=== PATIENT | male | born 1960 | race Two or more races ===

== ENCOUNTER 2020-07-03 06:23 | Inpatient (IN) | payer MEDICAID ==
[~2020-07-03] VITALS: Ht 175.3 cm; Wt 75.5 kg
[2020-07-03] MEDS ORDERED: fentaNYL CITRATE 100 MCG/2 ML VL ONE (07:13)
[2020-07-03] MEDS ORDERED: ANGIOMAX 250 MG VIAL IV ONE (07:13)
[2020-07-03] MEDS ORDERED: MIDAZOLAM HCL 1MG/1ML-2 ML VIAL ONE (07:14)
[2020-07-03] MEDS ORDERED: HEPARIN SODIUM (PORCINE) 5000 UNITS/ML 1ML VIAL ONE (07:14)
[2020-07-03] MEDS ORDERED: VERAPAMIL 2.5MG/ML INJ 2ML VIAL IV ONE (07:14)
[2020-07-03] MEDS ORDERED: SODIUM CHL 0.9% 50 ML ONE (07:14)
[2020-07-03] MEDS ORDERED: LIDOCAINE 2%HCL (LOCAL ANESTH.) INJ 20ML MDV ONE (07:20)
[2020-07-03] MEDS ORDERED: IODIXANOL 320MG/ML 100ML BTL IV ONE ×3 (07:21→09:07)
[2020-07-03] MEDS ORDERED: CLOPIDOGREL BISULFATE 75 MG TAB ONE (09:08)
[2020-07-03] MEDS ORDERED: MORPHINE SULF INJ 2 MG/ML SYRINGE 1ML IV PRN (09:30)
[2020-07-03] MEDS ORDERED: ATORVASTATIN 20 MG TAB PO SCH (10:00)
[2020-07-03] MEDS ORDERED: ASPirin 81 mg TAB PO SCH (10:00)
[2020-07-03] MEDS ORDERED: CYCL10TA6 PO (10:01)
[2020-07-03] MEDS ORDERED: CLOP75TA28 PO (10:01)
[2020-07-03] MEDS ORDERED: LISI-646 PO (10:01)
[2020-07-03] MEDS ORDERED: FENO134C PO (10:01)
[2020-07-03] MEDS ORDERED: FENO160T8 PO (10:01)
[2020-07-03] MEDS ORDERED: ASPI81CH59 PO (10:01)
[2020-07-03] MEDS ORDERED: METO-169 PO (10:01)
[2020-07-03] MEDS ORDERED: SERT-274 PO (10:01)
[2020-07-03] MEDS ORDERED: ATOR20TA PO (10:01)
--- NOTE | 2020-07-03 10:40 | NUR ---
TELE admit from Doctor Of Nursing Practice ALICIA PARKER brought to bed 219A after SBAR received, following Left Cardiac catheterization, on patient monitor and portable oxygen. Patient transferred to unit bed, connected to threat monitoring analyst #[id number]. Catheterization site assessed for any bleeding, redness or swelling. Left wrist Vasc-Band device in place, no bleeding noted, surrounding tissue soft to touch, no hematoma present. Right groin assessed, no bleeding noted, surrounding tissue soft to touch, no hematoma present. Pedal pulses on affected leg assessed for positive tissue perfusion. Patient instructed on need to notify staff immediately if any pain, burning or wetness to site, and any lower back pain. All questions and concerns addressed, patient verbalized understanding of all education and instruction.
--- NOTE | 2020-07-03 11:45 | NUR ---
Bleeding to right groin Minimal bleeding to right groin incision noticed at this time. Site is soft to touch, no s/s of hematoma noticed. Drainage circled at this time. Will continue to further monitor site for bleeding.
[2020-07-03 11:52] VITALS: BP 138/82
[2020-07-03] MEDS ORDERED: ASPirin 81 mg TAB PO ONE (13:45)
[2020-07-03] MEDS: HYDROcodone-ACET 10/325MG TAB PO PRN ×2 (14:02→20:08)
[2020-07-03] MEDS: CLOPIDOGREL BISULFATE 75 MG TAB PO SCH (14:02)
[2020-07-03] MEDS: CYCLOBENZAPRINE HCL 10 MG TAB PO SCH ×2 (14:03→21:35)
[2020-07-03] MEDS: ASPirin 81 mg TAB PO SCH (14:03)
[2020-07-03] MEDS: LISINOPRIL 20 MG TAB PO SCH (14:04)
[2020-07-03] MEDS: SERTRALINE HCL 50 MG TAB PO SCH (14:04)
[2020-07-03] MEDS: METOPROLOL SUCCINATE XL 50 MG TAB PO SCH (14:04)
[2020-07-03] MEDS: ATORVASTATIN 20 MG TAB PO SCH (14:05)
[2020-07-03 17:00] VITALS: BP 113/74
[2020-07-03] MEDS: NITROGLYCERIN 0.4 MG SL TAB SL PRN ×4 (17:10→23:51)
--- NOTE | 2020-07-03 17:10 | NUR ---
Chest Pain Patient complaining of medial right chest pain 6/, non radiating. Patient describes pain as sharp and stabbing. Per patient he started feeling pressure like pain about half an hour ago but at this time pressure has converted to stabbing pain. Chest pain protocol initiated at this time. Patient was given first dose of Nitroglycerin 0.4 mg sublingual. EKG taken and reviewed by Dr. Sims, new orders received, will implement orders and continue to monitor patient.
[2020-07-03] MEDS ORDERED: ISOSORBIDE MONONITRATE ER 60 MG TAB PO ONE (17:45)
[2020-07-03] MEDS ORDERED: FAMOTIDINE 20 MG TAB PO ONE (17:45)
--- NOTE | 2020-07-03 19:25 | NUR ---
OPENING SHIFT NOTE Assumed care of patient from Kya SANTILLAN, patient is alert and oriented currently on RA with no S/S of distress or SOB. Status post Left Heart Cath with an incision to the right groin, dressing is clean dry and intact, no bleeding or discomfort noted at this time. POC discussed with patient in detail and all questions answered. Bed in lowest position, locked, side rails up x2. Call light is within reach,encouraged to call for assistance when needed. Will continue to monitor PRN.
[2020-07-03] MEDS: FAMOTIDINE 20 MG TAB PO SCH (21:35)
[2020-07-03 23:02] VITALS: BP 100/58
--- NOTE | 2020-07-03 23:40 | NUR ---
CHEST PAIN Patient complained of chest pain 10/10 that radiated to the left shoulder that was sharp feeling. Patient is anxious but not diaphoretic, VS are as followed HR:75 BP:108/68 RR:18 O2:94% TEMP:97.3. Chest pain protocol initiated at this time. Patient was given first dose of Nitroglycerin 0.4mg Sublingual, Oxygen applied @ 2L NC, EKG was taken which showed Sinus Rhythm at 84bpm, no new EKG changes noted from previous EKG. Will continue to monitor.
--- NOTE | 2020-07-03 23:50 | NUR ---
NITRO ADMIN Second dose of Nitroglycerin 0.4mg was given sublingual. VS: HR:80 BP:108/66 RR:18 O2:94%. Patient states pain is 5/10 and the pain is starting to subside. Will continue to monitor.
[2020-07-04] MEDS: HYDROcodone-ACET 10/325MG TAB PO PRN ×2 (02:38→09:26)
--- NOTE | 2020-07-04 02:46 | NUR ---
ROUNDING Patient states pain has subsided and currently no chest pain noted at this time. Will continue to monitor as needed.
[2020-07-04] MEDS ORDERED: ONDANSETRON HCL 4 MG/2 ML VIAL IV PRN (03:00)
[2020-07-04] MEDS: CYCLOBENZAPRINE HCL 10 MG TAB PO SCH (05:58)
[2020-07-04 06:00] VITALS: BP 93/56
[2020-07-04 06:01] LABS: Basophils # (auto) 0.1 10 ^3/uL (0-0.2); Basophils % (auto) 0.9 % (0.0-2.0); Eosinophils # (auto) 0.3 10 ^3/uL (0-0.8); Eosinophils % (auto) 5.5 % (0.0-7.0); Hematocrit 39.2 % (41.0-53.0); Hemoglobin 12.9 g/dL (13.5-17.5); Lymphocytes # (auto) 1.3 10 ^3/uL (0.4-5.4); Lymphocytes % (auto) 22.3 % (10.0-50.0); Mean Corpuscular Hemoglobin 32.3 pg (28.0-32.0); Mean Corpuscular Volume 97.9 fL (80.0-100.0); Monocytes # (auto) 0.5 10 ^3/uL (0-1.3); Monocytes % (auto) 7.9 % (0.0-12.0); Neutrophils # (auto) 3.7 10 ^3/uL (1.6-8.6); Neutrophils % (auto) 63.4 % (37.0-80.0); Nucleated Red Blood Cells % 0.1 %; Platelet Count (auto) 163 10^3/uL (140-450); Red Blood Cells 4.01 10^6/uL (4.5-5.90); Red Cell Distribution Width 14.2 % (11.8-14.3); White Blood Cell 5.8 10^3/uL (4.4-10.8)
[2020-07-04 06:16] LABS: Albumin 3.7 g/dL (3.4-5.0); Potassium 3.5 mmol/L (3.5-5.1)
[2020-07-04 06:19] LABS: Bilirubin, Total 1.3 mg/dL (0.2-1.0); Total Protein 6.6 g/dL (6.4-8.2)
--- NOTE | 2020-07-04 07:35 | NUR ---
Dr. Sims at bed side to see pt, doctor discussed the plan of care with pt.
--- NOTE | 2020-07-04 08:00 | NUR ---
Received pt resting in bed, call light with in reach, pt denies any pain or discomfort at this time, will continue to monitor pt.
[2020-07-04 08:38] VITALS: BP 104/68
[2020-07-04 09:00] VITALS: BP 104/68
[2020-07-04] MEDS: SERTRALINE HCL 50 MG TAB PO SCH (09:20)
[2020-07-04] MEDS: CLOPIDOGREL BISULFATE 75 MG TAB PO SCH (09:20)
[2020-07-04] MEDS: ATORVASTATIN 20 MG TAB PO SCH (09:20)
[2020-07-04] MEDS: ASPirin 81 mg TAB PO SCH (09:22)
[2020-07-04] MEDS: FAMOTIDINE 20 MG TAB PO SCH (09:22)
[2020-07-04] MEDS: METOPROLOL SUCCINATE XL 50 MG TAB PO SCH (09:23)
[2020-07-04] MEDS: LISINOPRIL 20 MG TAB PO SCH (09:23)
[2020-07-04] MEDS ORDERED: ISOSORBIDE MONONITRATE ER 60 MG TAB PO SCH (10:00)
--- NOTE | 2020-07-04 10:16 | NUR ---
Discharge instructions given as ordered. Encourage to follow up with PMD as instructed. All questions and concerns addressed. Patient verbalized understanding. Medication reconciliation form completed and copy given to patient. No home medications held in Pharmacy, and no needed vaccines to be given. Pt's prescribed medications picking tech from [facility] pharmacy and given to pt, as per labour market economist stents card given to pt. IV removed with catheter intact, pressure dressing applied. Telemetry unit returned to ICU. [facility] tech pt.
[2020-07-04 10:45] VITALS: BP 113/73
--- NOTE | 2020-07-04 11:13 | NUR ---
Patient taken to vehicle via wheelchair with all personal belongings, accompanied by staff member. No distress noted at time of departure.
== END 2020-07-04 11:10 | disposition home or self-care (01) | DRG 175 ==
LOC: CATH 06:23 → TELE-CENTR 11:13
PROVIDERS: ADMIT Internal Medicine Cardiovascular Disease; ATTEND Internal Medicine Cardiovascular Disease
PROC: 027034Z Dilation of Coronary Artery, One Artery with Drug-eluting Intraluminal Device, Percutaneous Approach (ICD-10-PCS; principal; 2020-07-03)
PROC: 4A023N7 Measurement of Cardiac Sampling and Pressure, Left Heart, Percutaneous Approach (ICD-10-PCS; 2020-07-03)
PROC: B211YZZ Fluoroscopy of Multiple Coronary Arteries using Other Contrast (ICD-10-PCS; 2020-07-03)
PROC: B215YZZ Fluoroscopy of Left Heart using Other Contrast (ICD-10-PCS; 2020-07-03)
DX: T82.855A Stenosis of coronary artery stent, initial encounter (principal); I10 Essential (primary) hypertension; K21.9 Gastro-esophageal reflux disease without esophagitis; I25.110 Atherosclerotic heart disease of native coronary artery with unstable angina pectoris; Y84.0 Cardiac catheterization as the cause of abnormal reaction of the patient, or of later complication, without mention of misadventure at the time of the procedure; Y92.89 Other specified places as the place of occurrence of the external cause; Z86.73 Personal history of transient ischemic attack (TIA), and cerebral infarction without residual deficits; Z20.828 Contact with and (suspected) exposure to other viral communicable diseases
CPT/HCPCS: 36415; 80053; 85025; 99152; 99153; C1874; G0378; J2250; J2405; Q9967